=== PATIENT | female | born 1995 | race Caucasian/White ===

== ENCOUNTER 2018-03-03 01:02 | Emergency (ER) | END 2018-03-03 07:06 | disposition home or self-care (01) ==

== ENCOUNTER 2018-03-11 19:59 | Emergency (ER) | END 2018-03-12 01:01 | disposition home or self-care (01) ==

== ENCOUNTER 2018-04-04 14:11 | Emergency (ER) | END 2018-04-04 16:35 | disposition home or self-care (01) ==

== ENCOUNTER 2018-04-05 16:57 | Emergency (ER) | END 2018-04-05 19:56 | disposition home or self-care (01) ==

== ENCOUNTER 2018-04-12 00:34 | Emergency (ER) | END 2018-04-12 04:10 | disposition home or self-care (01) ==

== ENCOUNTER 2018-08-22 20:11 | Emergency (ER) | END 2018-08-22 23:59 | disposition home or self-care (01) ==

== ENCOUNTER 2018-08-23 18:16 | Emergency (ER) | END 2018-08-23 21:03 | disposition home or self-care (01) ==

== ENCOUNTER 2018-08-26 15:55 | Emergency (ER) | END 2018-08-26 20:28 | disposition home or self-care (01) ==

== ENCOUNTER 2018-10-25 17:11 | Emergency (ER) | payer OTHER ==
[~2018-10-25] VITALS: Ht 152.4 cm; Wt 72.7 kg
[~2018-10-25 17:11] MED LIST: ACET325T33 PO; CALC500T91 PO; CEPH-443 PO; CIPR500T4 PO; FOLI-49 PO; HYDR-4011 PO; IBUP-1542 PO; NITR-58 PO; PREN1TAB79 PO
[2018-10-25 17:28] VITALS: BP 116/78; PULSE 101; RESP 20; Ht 152.4 cm; Wt 72.7 kg
--- NOTE | 2018-10-25 20:17 | ERD ---
ER Documentation Chief Complaint Chief Complaint N/V, diarrhea, SOB, AP X 3 days HPI This patient is a 23-year-old female who presents with generalized abdominal pain she has had for 3 days with diarrhea that is nonbloody. She also has nausea and states she vomited one time yesterday but no other vomiting. She has no dysuria hematuria or frequency. She is tolerating oral intake. ROS All systems reviewed and are negative except as per history of present illness. Medications Home Meds Active Scripts Phenazopyridine Hcl* (Pyridium*) 200 Mg Tab, 200 MG PO TID PRN for URINARY PAIN, #6 TAB Prov:HOLLIE KIM PA-C 10/25/18 Nitrofurantoin Monohyd Macrocr* (Macrobid*) 100 Mg Capsr, 100 MG PO BID for 7 Days, CAP Prov:HOLLIE KIM PA-C 10/25/18 Acetaminophen* (Tylenol*) 325 Mg Tablet, 2 TAB PO Q6 PRN for PAIN AND OR ELEVATED TEMP, #20 TAB Prov:ALISON SOTO PA-C 08/23/18 Cephalexin* (Keflex*) 500 Mg Capsule, 500 MG PO BID for 7 Days, CAP Prov:MARKELL GARCIA PA-C 08/22/18 Ibuprofen* (Motrin*) 600 Mg Tab, 600 MG PO Q6H PRN for PAIN AND OR ELEVATED TEMP, #30 TAB Prov:ANGELO HUGHES NP 04/12/18 Hydrocodone/Acetaminophen ([place] 5-325 Tablet) 1 Each Tablet, 1 TAB PO Q6H PRN for SEVERE PAIN LEVEL 7-10, #20 TAB Prov:ANGELO HUGHES NP 04/12/18 Ciprofloxacin Hcl* (Ciprofloxacin Hcl*) 500 Mg Tablet, 500 MG PO BID for 7 Days, TAB Prov:KEIRA BENAVIDES PA-C 04/04/18 Nitrofurantoin Monohyd Macrocr* (Macrobid*) 100 Mg Capsr, 100 MG PO BID for 7 Days, CAP Prov:ANGELO HUGHES NP 03/12/18 Cephalexin* (Keflex*) 500 Mg Capsule, 500 MG PO BID for 7 Days, CAP Prov:CELY TORO MD 03/03/18 Reported Medications Calcium Carbonate ([id number]) 500 Mg Tablet, 500 MG PO, TAB 03/03/18 Folic Acid* (Folic Acid*) 1 Mg Tablet, 1 MG PO DAILY, TAB 03/03/18 Vit W-Ca,Fe,FA(<1 mg) ( Vitamins) 1 Each Tablet, 1 EACH PO, TAB 03/03/18 Allergies Allergies: Coded Allergies: No Known Allergy (Unverified , 08/26/18) PMhx/Soc History of Surgery: No Anesthesia Reaction: No Hx Neurological Disorder: No Hx Respiratory Disorders: No Hx Cardiac Disorders: No Hx Psychiatric Problems: No Hx Miscellaneous Medical Probl: Yes (ANEMIA) Hx Alcohol Use: No Hx Substance Use: No Hx Tobacco Use: No FmHx Family History: No diabetes Physical Exam Vitals Vital Signs Date Temp Pulse Resp B/P (MAP) Pulse Ox O2 O2 Flow FiO2 Time Delivery Rate 10/25/18 98.5 101 20 116/78 98 17:28 (91) Physical Exam INITIAL VITAL SIGNS: Reviewed by me GENERAL: Awake, alert and oriented x 4, well appearing, nontoxic, speaking in full sentences. No acute distress HEAD: Atraumatic RESPIRATORY: Clear to auscultation bilaterally. Symmetric chest wall rise. No wheezing or rales. No accessory muscle use. CV: Regular rate and rhythm. No murmurs, rubs, or gallops. ABDOMEN: Soft, non-distended. Nontender. Negative [place]. Negative [place] point tenderness. No CVA tenderness bilaterally. No guarding. No rebound. Results 24 hrs Laboratory Tests Test 10/25/18 20:33 10/25/18 20:35 Bedside Urine pH (LAB) 6.5 Bedside Urine Protein (LAB) Trace Bedside Urine Glucose (UA) Negative Bedside Urine Ketones (LAB) Trace Bedside Urine Blood Trace-intact Bedside Urine Nitrite (LAB) Negative Bedside Urine Leukocyte Esterase (L 1+ POC Beta HCG, Qualitative NEGATIVE Procedures/MDM The differential diagnosis includes but is not limited to appendicitis, cholelithiasis, cholecystitis, pancreatitis, hepatitis, gastritis, peptic ulcer disease, bowel obstruction, diverticulitis, renal disease including stones, torsion, AAA, pyelonephritis, and others. Patients is alert, oriented, well appearing, and in no distress with normal vital signs. There is no fever, tachycardia, or tachypnea. Patient's GI examination is benign. She has no tenderness throughout including over her appendix or gallbladder. No CVA tenderness. Low suspicion for any emergent etiology for her symptoms. Urine d ip and urine test ordered. Urine does have evidence of UTI she will be discharged with Macrobid as well as Pyridium and Zofran. Patient counseled regarding my diagnostic impression and care plan. Prior to discharge all questions answered. Pt agrees with treatment plan and understands strict return precautions. Pt is instructed to follow up with primary care provider within 24- 48 hours. Precautionary instructions provided including instructions to return to the ER if not improving or for any worsening or changing symptoms or concerns. Departure Diagnosis: Primary Impression: UTI (urinary tract infection) Condition: Stable HOLLIE KIM PA-C Oct 25, 2018 20:17
[2018-10-25] MEDS ORDERED: NITR-58 PO (20:40)
[2018-10-25] MEDS ORDERED: PHEN-538 PO (20:41)
[2018-10-25] MEDS ORDERED: ONDA4TAB14 PO (20:43)
== END 2018-10-25 20:55 | disposition home or self-care (01) ==
LOC: FTE 17:11
DX: N39.0 Urinary tract infection, site not specified (principal)
CPT/HCPCS: 81003; 81025; Z7502; 99283